=== PATIENT | female | born 1950 | race Two or more races ===

== ENCOUNTER 2017-05-18 03:47 | Inpatient (IN) | payer MEDICARE, OTHER ==
[~2017-05-18] VITALS: Ht 165.1 cm; Wt 63.3 kg
[2017-05-18] VITALS (11 sets, daily range): BP systolic 106–164; BP diastolic 61–96; PULSE 74–91; RESP 18–20; TEMP 98.4; Ht 165.1 cm; Wt 63.3 kg
[~2017-05-18 03:47] MED LIST: ASPI-664 PO; LEVO75TA5 PO; MELO-210 PO; OMEP20CA16 PO; SIMV40TA7 PO
[2017-05-18] MEDS ORDERED: NACL 0.9% 3 ML SYG IV SCH (04:30)
[2017-05-18] MEDS ORDERED: DOCUSATE SODIUM 100 MG CAP PO PRN (04:30)
[2017-05-18] MEDS ORDERED: BISACODYL (EC) 5 MG TAB PO PRN (04:30)
[2017-05-18] MEDS ORDERED: ONDANSETRON 4 MG INJ IV PRN (04:30)
[2017-05-18] MEDS ORDERED: CHOL100062 PO (05:31)
--- NOTE | 2017-05-18 05:40 | RADRPT ---
PROCEDURE: Chest. CLINICAL INDICATION: Syncope. TECHNIQUE: Single frontal view of the chest was obtained. COMPARISON: 09/13/2015. FINDINGS: The cardiac silhouette is enlarged. The aortic arch is calcified. There is mild pulmonary venous co ngestion. There is no focal consolidation or pleural effusion. There is no pneumothorax. IMPRESSION: Mild cardiomegaly and pulmonary venous congestion. Aortic atherosclerosis. .Evens Tovar MD, Date Time Electronically viewed and signed by .Evens Tovar MD, MD on 05/18/2017 05:39 .T/
[2017-05-18] MEDS: LEVOTHYROXINE 75 MCG TAB PO SCH (07:16)
[2017-05-18] MEDS: FAMOTIDINE 20 MG TAB PO SCH ×2 (09:00→20:25)
[2017-05-18] MEDS: ATORVASTATIN 20 MG TAB PO SCH (09:00)
--- NOTE | 2017-05-18 12:10 | CONS ---
Date/Time of Note Date/Time of Note DATE: 05/18/17 TIME: 12:05 Assessment/Plan Assessment/Plan Chief Complaint/Hosp Course 67 yo female with progressive LE weakness, increasing falls with B12 deficiency and anemia. 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 Prior falls have been associated with LOC, she was evaluated at [facility] previously and obtained unremarkable brain imaging and EEG. She is now tx from [facility] for further evaluation. Per family at bedside she has not received diagnostic york for possible neuropathy. H/H: 9.2/26.4 B12: 181 HBA1C 4.9% LE weakness reported Past Surgical History Past Surgical Hx: other Social History Smoking Status: Never smoker Exam/Review of Systems Vital Signs Vitals Vital Signs Date Time Temp Pulse Resp B/P Pulse Ox O2 Delivery O2 Flow Rate FiO2 05/18/17 11:55 98.4 74 20 106/61 98 Room Air Exam Constitutional: alert, oriented, well developed Neurological: INTERNSHIP COORDINATOR II-XII intact, DTR's symmetric (UE Reflexes 2+ KJ 2+ AJ are absent, absent vibratory sensation to both LE, PP is diminished below her knees as well , strength is overall 5/5 aside from mild weakness to the LLE left extensor hallucis 4/5), nl mental status, nl speech Results Result Diagram: 05/18/17 0610 05/18/17 0610 Results 24 hrs Laboratory Tests Test 05/18/17 06:10 White Blood Count 5.4 # Red Blood Count 2.20 #L Hemoglobin 9.2 #L Hematocrit 26.4 #L Mean Corpuscular Volume 120.0 H Mean Corpuscular Hemoglobin 41.8 #H Mean Corpuscular Hemoglobin Concent 34.8 Red Cell Distribution Width 15.4 H Platelet Count 150 Mean Platelet Volume 9.2 # Neutrophils % 49.7 Lymphocytes % 40.6 Monocytes % 6.5 Eosinophils % 2.4 Basophils % 0.2 Nucleated Red Blood Cells % 0.0 Neutrophils # 2.7 Lymphocytes # 2.2 Monocytes # 0.4 Eosinophils # 0.1 Basophils # 0.0 Nucleated Red Blood Cells # 0.0 Erythrocyte Sedimentation Rate 17 Sodium Level 144 Potassium Level 3.7 Chloride Level 108 Carbon Dioxide Level 28 Anion Gap 12 Blood Urea Nitrogen 15 Creatinine 0.70 Glucose Level 82 Hemoglobin A1c 4.9 Calcium Level 8.9 Magnesium Level 1.9 Total Bilirubin 0.5 Direct Bilirubin 0.00 Indirect Bilirubin 0.5 Aspartate Amino Transf (AST/SGOT) 16 Alanine Aminotransferase (ALT/SGPT) 22 Alkaline Phosphatase 63 Total Protein 6.3 Albumin 3.9 Globulin 2.40 Albumin/Globulin Ratio 1.62 Triglycerides Level 121 Cholesterol Level 172 LDL Cholesterol, Calculated 106 HDL Cholesterol 42 Cholesterol/HDL Ratio 4.0 Vitamin B12 Level 181 L Folate 17.2 Thyroid Stimulating Hormone (TSH) 2.790 Medications Medications Current Medications Ondansetron HCl (Zofran Inj) 4 mg Q6H PRN IV NAUSEA AND/OR VOMITING; Start at 04:30 Acetaminophen (Tylenol Tab) 650 mg Q6H PRN PO PAIN LEVEL 1-3 OR FEVER; Start 05/18/17 at 04:30 Docusate Sodium (Colace) 100 mg Q12H PRN PO CONSTIPATION; Start 05/18/17 at 04 :30 Bisacodyl (Dulcolax) 5 mg DAILY PRN PO CONSTIPATION; Start 05/18/17 at 04:30 Famotidine (Pepcid) 20 mg Q12 PO Last administered on 05/18/17 09:00; Admin Dose 20 MG; Start 05/18/17 at 09:00 Levothyroxine Sodium (Synthroid) 75 mcg DAILY@07 PO Last administered on 07:16; Admin Dose 75 MCG; Start 05/18/17 at 07:00 Atorvastatin Calcium (Lipitor) 20 mg DAILY PO Last administered on 05/18/17 09:00; Admin Dose 20 MG; Start 05/18/17 at 09:00 MELLISA CARTER MD May 18, 2017 12:10
--- NOTE | 2017-05-18 13:30 | HP ---
Date/Time of Note Date/Time of Note DATE: 05/18/17 TIME: 13:21 Assessment/Plan VTE Prophylaxis VTE Prophylaxis Intervention: LMWH Assessment/Plan Assessment/Plan This is a 67 yo female with history of hypothyroidism, thyroid surgeries, peripheral neuropathy, osteoarthritis, hypercholesterolemia, who was transferred from [facility] with progressive LE weakness and associated multiple episodes of falls. 1. Bilateral lower extremity weakness with progressive debility. -Admit for further workup. Obtain MRI of lumbar spine and neurology consult. -PT evaluation and treatment. 2. Megaloblastic anemia. -Obtain folate, B12. 3. Hypothyroidism with history of thyroid surgeries. -Resume Synthroid. Obtain full thyroid panel in a.m. 4. Hypercholesterolemia. -Resume statin. 5. GERD -Resume PPI. 6. History of osteoarthritis -Resume pain medications. 7. Vitamin D deficiency. -Potassium supplementation. DVT prophylaxis: Lovenox Plan: Patient will be admitted to inpatient medical surgical floor. She will have neurology evaluation. Patient will be evaluated by PT. Follow-up with imaging studies and a.m. labs. Follow-up with folate and vitamin B12 levels and treat accordingly. Rest of the management depend on hospital course. Approximately 60 minutes was spent on this history and physical. Patient was seen in collaboration with . HPI/ROS Admit Date/Time Admit Date/Time May 18, 2017 at 04:17 Hx of Present Illness This is a 67-year-old Nepali female with a past medical history of hypothyroidism, thyroid surgery, osteoarthritis, vitamin D deficiency, hypercholesterolemia, GERD, who was brought to the emergency room from [facility] secondary to progressive lower extremity weakness, bilateral. Patient has been having increased episodes of fall over the past few months. Patient denied chest pain, dizziness, headache, numbness/tingling, confusion, loss of consciousness, shortness of breath, fever, nausea, vomiting, abdominal pain or other constitutional symptoms. She denied any vision changes, speech difficulties, or any focal deficits. Reviewed outside hospital charts. Patient with hemoglobin 10.2, hematocrit 28.8 , MCV 121.7, and MCH 43.2. BMP within excitable range. UA without any possibility of UTI. Vital signs with blood pressure 162/81. Otherwise unremarkable. ROS A 12 point review of system was assessed and is negative other than what is mentioned in the HPI. PMH/Family/Social Past Medical History See HPI Past Surgical History See HPI Past Surgical Hx: other Social History Patient denied history of alcohol, smoking or illicit drug use. Smoking Status: Never smoker Exam/Review of Systems Vital Signs Vitals Vital Signs Date Time Temp Pulse Resp B/P Pulse Ox O2 Delivery O2 Flow Rate FiO2 05/18/17 11:55 98.4 74 20 106/61 98 Room Air Exam Exam General: Well developed,adequately built, Nepali female not in any acute distress . HEENT: Normocephalic, Atraumatic, No laceration or hematoma; Eyes: PEERL, Conjunctiva clear, Anicteric sclera Neck: Supple without any lymphadenopathy, nontender, no JVD, no carotid bruits, trachea midline, no thyromegaly Cardiac: S1, S2 auscultated, regular rhythm and rate, no mumurs or gallop Pulmonary: Normal respiratory effort. Chest clear to auscultation bilaterally, no adventitious breath sounds GI: Abdomen normal to inspection. Soft, non tender, non- distended, no masses, no rebound tenderness or guarding. Bowel sounds active on all four quadrants Genitourinary: Deferred Extremities: With pain and weakness to bilateral lower extremity. Motor strength 4 out of 5 on bilateral lower extremities. No cyanosis, clubbing, or edema. Pulses [2+] bilaterally. Full ROM on all four extremities. No focal weakness appreciated. Neurologic: Alert to person, place, time, and situation. Affect appropriate, intact sensation. Skin: Clean,dry, and intact. No ecchymosis, no rashes, or lesions Labs Result Diagram: 05/18/17 0610 05/18/17 0610 Medications Medications Current Medications Ondansetron HCl (Zofran Inj) 4 mg Q6H PRN IV NAUSEA AND/OR VOMITING; Start at 04:30 Acetaminophen (Tylenol Tab) 650 mg Q6H PRN PO PAIN LEVEL 1-3 OR FEVER; Start 05/18/17 at 04:30 Docusate Sodium (Colace) 100 mg Q12H PRN PO CONSTIPATION; Start 05/18/17 at 04 :30 Bisacodyl (Dulcolax) 5 mg DAILY PRN PO CONSTIPATION; Start 05/18/17 at 04:30 Famotidine (Pepcid) 20 mg Q12 PO Last administered on 05/18/17t 09:00; Admin Dose 20 MG; Start 05/18/17 at 09:00 Levothyroxine Sodium (Synthroid) 75 mcg DAILY@07 PO Last administered on 07:16; Admin Dose 75 MCG; Start 05/18/17 at 07:00 Atorvastatin Calcium (Lipitor) 20 mg DAILY PO Last administered on 05/18/17 09:00; Admin Dose 20 MG; Start 05/18/17 at 09:00 Cyanocobalamin (Vitamin B12 Inj) 1,000 mcg DAILY IM ; Start 05/18/17 at 12:30 SAMANTA MENDIETA NP May 18, 2017 13:30
[2017-05-18] MEDS: CYANOCOBALAMIN 1000 MCG INJ IM SCH (16:49)
[2017-05-19] VITALS (11 sets, daily range): BP systolic 106–165; BP diastolic 58–80; PULSE 60–92; RESP 16–20
[2017-05-19] MEDS: ACETAMINOPHEN 325 MG TAB PO PRN (00:12)
--- NOTE | 2017-05-19 07:38 | RADRPT ---
Echocardiogram Report Patient Name: CHAPARRITA METZGER Gender: Female Date: 1950 Study Date: 18-May-2017 Retirement Manager: Andre Akins [facility] Location: 3306 Ref. Physician: WILLIS RUIZ Quality: Adequate Procedures: Transthoracic echocardiogram with complete 2D, M-Mode, and doppler examination. Indications: Syncope. 2D/M Mode Doppler Measurement Value Normal Ranges Measurement Value Normal Ranges LVIDd 2D 4.7 3.5 - 5.6 cm AV Peak Sushil 1.6 m/sec LVIDs 2D 3.1 2.1 - 4.1 cm AV Peak PG 10.0 mmHg FS 2D 33.3 % LVOT Peak Sushil 1.0 m/sec LVPWd 2D 1.1 0.6 - 1.1 cm LVOT Peak PG 4.0 mmHg IVSd 2D 1.1 0.6 - 1.1 cm MV E Peak Sushil 0.8 m/sec IVS/LVPW 2D 1.0 MV A Peak Sushil 1.1 m/sec AoR Diam 2D 3.6 2.0 - 3.7 cm MV E/A 0.8 LA/Ao 2D 1 0 - 1 MV Decel Time 268 msec EDV 2D 104.0 cm3 MV E/A 0.8 ESV 2D 31.0 cm3 TR Peak Sushil 2.2 m/sec LA Dimen 2D 3.9 2.3 - 4.0 cm TR Peak PG 20.0 mmHg RVSP 30.0 mmHg Findings Left Ventricle: Normal left ventricular systolic function. Normal left ventricular cavity size. Mild concentric left ventricular hypertrophy. Ejection fraction is visually estimated at 55 %. Tissue Doppler/Mitral Doppler indices are consistent with impaired relaxation (Stage I diastolic dysfunction). Right Ventricle: Normal right ventricular size. Normal right ventricular systolic function. Left Atrium: The left atrium is normal in size. Right Atrium: The right atrium is normal in size. Mitral Valve: Mild mitral leaflet calcification. Mild mitral annular calcification. Trace mitral regurgitation. Aortic Valve: No significant aortic stenosis. Aortic cusps appear mildly calcified. Trace aortic valve regurgitation. Tricuspid Valve: Normal appearance of the tricuspid valve. Estimated peak PA systolic pressure 30 mmHg. There is mild tricuspid regurgitation. Pulmonic Valve: Pulmonic valve not well visualized. There is trace pulmonic regurgitation. Pericardium: Normal pericardium with no significant pericardial effusion. Aorta: Normal aortic root. IVC: Normal size and normal respiratory collapse consistent with normal right atrial pressure. Conclusions 1.Normal left ventricular systolic function. Normal left ventricular cavity size. Mild concentric left ventricular hypertrophy. Ejection fraction is visually estimated at 55 %. Tissue Doppler/Mitral Doppler indices are consistent with impaired relaxation (Stage I diastolic dysfunction). 2.Mild mitral leaflet calcification. Mild mitral annular calcification. Trace mitral regurgitation. 3.No significant aortic stenosis. Aortic cusps appear mildly calcified. Trace aortic valve regurgitation. 4.Normal appearance of the tricuspid valve. Estimated peak PA systolic pressure 30 mmHg. There is mild tricuspid regurgitation. Electronically Signed By: Julio Buitrago 19-May-2017 07:38:19 -0700 Patient Name: CHAPARRITA METZGER Study Date: 18-May-2017 [id number]
--- NOTE | 2017-05-19 07:38 | RADRPT ---
Echocardiogram Report Patient Name: CHAPARRITA METZGER Gender: Female Date: 1950 Study Date: 18-May-2017 Masking Machine Feeder: Andre Akins [facility] Location: 3306 Ref. Physician: WILLIS RUIZ Quality: Adequate Procedures: Transthoracic echocardiogram with complete 2D, M-Mode, and doppler examination. Indications: Syncope. 2D/M Mode Doppler Measurement Value Normal Ranges Measurement Value Normal Ranges LVIDd 2D 4.7 3.5 - 5.6 cm AV Peak Sushil 1.6 m/sec LVIDs 2D 3.1 2.1 - 4.1 cm AV Peak PG 10.0 mmHg FS 2D 33.3 % LVOT Peak Sushil 1.0 m/sec LVPWd 2D 1.1 0.6 - 1.1 cm LVOT Peak PG 4.0 mmHg IVSd 2D 1.1 0.6 - 1.1 cm MV E Peak Sushil 0.8 m/sec IVS/LVPW 2D 1.0 MV A Peak Sushil 1.1 m/sec AoR Diam 2D 3.6 2.0 - 3.7 cm MV E/A 0.8 LA/Ao 2D 1 0 - 1 MV Decel Time 268 msec EDV 2D 104.0 cm3 MV E/A 0.8 ESV 2D 31.0 cm3 TR Peak Sushil 2.2 m/sec LA Dimen 2D 3.9 2.3 - 4.0 cm TR Peak PG 20.0 mmHg RVSP 30.0 mmHg Findings Left Ventricle: Normal left ventricular systolic function. Normal left ventricular cavity size. Mild concentric left ventricular hypertrophy. Ejection fraction is visually estimated at 55 %. Tissue Doppler/Mitral Doppler indices are consistent with impaired relaxation (Stage I diastolic dysfunction). Right Ventricle: Normal right ventricular size. Normal right ventricular systolic function. Left Atrium: The left atrium is normal in size. Right Atrium: The right atrium is normal in size. Mitral Valve: Mild mitral leaflet calcification. Mild mitral annular calcification. Trace mitral regurgitation. Aortic Valve: No significant aortic stenosis. Aortic cusps appear mildly calcified. Trace aortic valve regurgitation. Tricuspid Valve: Normal appearance of the tricuspid valve. Estimated peak PA systolic pressure 30 mmHg. There is mild tricuspid regurgitation. Pulmonic Valve: Pulmonic valve not well visualized. There is trace pulmonic regurgitation. Pericardium: Normal pericardium with no significant pericardial effusion. Aorta: Normal aortic root. IVC: Normal size and normal respiratory collapse consistent with normal right atrial pressure. Conclusions 1.Normal left ventricular systolic function. Normal left ventricular cavity size. Mild concentric left ventricular hypertrophy. Ejection fraction is visually estimated at 55 %. Tissue Doppler/Mitral Doppler indices are consistent with impaired relaxation (Stage I diastolic dysfunction). 2.Mild mitral leaflet calcification. Mild mitral annular calcification. Trace mitral regurgitation. 3.No significant aortic stenosis. Aortic cusps appear mildly calcified. Trace aortic valve regurgitation. 4.Normal appearance of the tricuspid valve. Estimated peak PA systolic pressure 30 mmHg. There is mild tricuspid regurgitation. Electronically Signed By: Julio Buitrago 19-May-2017 07:38:19 -0700 Patient Name: CHAPARRITA METZGER Study Date: 18-May-2017 [id number]
--- NOTE | 2017-05-19 07:38 | RADRPT ---
Echocardiogram Report Patient Name: CHAPARRITA METZGER Gender: Female Date: 1950 Study Date: 18-May-2017 Sales Agent Financial Report Service: Andre Akins [facility] Location: 3306 Ref. Physician: WILLIS RUIZ Quality: Adequate Procedures: Transthoracic echocardiogram with complete 2D, M-Mode, and doppler examination. Indications: Syncope. 2D/M Mode Doppler Measurement Value Normal Ranges Measurement Value Normal Ranges LVIDd 2D 4.7 3.5 - 5.6 cm AV Peak Sushil 1.6 m/sec LVIDs 2D 3.1 2.1 - 4.1 cm AV Peak PG 10.0 mmHg FS 2D 33.3 % LVOT Peak Sushil 1.0 m/sec LVPWd 2D 1.1 0.6 - 1.1 cm LVOT Peak PG 4.0 mmHg IVSd 2D 1.1 0.6 - 1.1 cm MV E Peak Sushil 0.8 m/sec IVS/LVPW 2D 1.0 MV A Peak Sushil 1.1 m/sec AoR Diam 2D 3.6 2.0 - 3.7 cm MV E/A 0.8 LA/Ao 2D 1 0 - 1 MV Decel Time 268 msec EDV 2D 104.0 cm3 MV E/A 0.8 ESV 2D 31.0 cm3 TR Peak Sushil 2.2 m/sec LA Dimen 2D 3.9 2.3 - 4.0 cm TR Peak PG 20.0 mmHg RVSP 30.0 mmHg Findings Left Ventricle: Normal left ventricular systolic function. Normal left ventricular cavity size. Mild concentric left ventricular hypertrophy. Ejection fraction is visually estimated at 55 %. Tissue Doppler/Mitral Doppler indices are consistent with impaired relaxation (Stage I diastolic dysfunction). Right Ventricle: Normal right ventricular size. Normal right ventricular systolic function. Left Atrium: The left atrium is normal in size. Right Atrium: The right atrium is normal in size. Mitral Valve: Mild mitral leaflet calcification. Mild mitral annular calcification. Trace mitral regurgitation. Aortic Valve: No significant aortic stenosis. Aortic cusps appear mildly calcified. Trace aortic valve regurgitation. Tricuspid Valve: Normal appearance of the tricuspid valve. Estimated peak PA systolic pressure 30 mmHg. There is mild tricuspid regurgitation. Pulmonic Valve: Pulmonic valve not well visualized. There is trace pulmonic regurgitation. Pericardium: Normal pericardium with no significant pericardial effusion. Aorta: Normal aortic root. IVC: Normal size and normal respiratory collapse consistent with normal right atrial pressure. Conclusions 1.Normal left ventricular systolic function. Normal left ventricular cavity size. Mild concentric left ventricular hypertrophy. Ejection fraction is visually estimated at 55 %. Tissue Doppler/Mitral Doppler indices are consistent with impaired relaxation (Stage I diastolic dysfunction). 2.Mild mitral leaflet calcification. Mild mitral annular calcification. Trace mitral regurgitation. 3.No significant aortic stenosis. Aortic cusps appear mildly calcified. Trace aortic valve regurgitation. 4.Normal appearance of the tricuspid valve. Estimated peak PA systolic pressure 30 mmHg. There is mild tricuspid regurgitation. Electronically Signed By: Julio Buitrago 19-May-2017 07:38:19 -0700 Patient Name: CHAPARRITA METZGER Study Date: 18-May-2017 [id number]
[2017-05-19] MEDS: LEVOTHYROXINE 75 MCG TAB PO SCH (08:42)
[2017-05-19] MEDS: ATORVASTATIN 20 MG TAB PO SCH (08:42)
[2017-05-19] MEDS: FAMOTIDINE 20 MG TAB PO SCH ×2 (08:43→20:19)
[2017-05-19] MEDS: CYANOCOBALAMIN 1000 MCG INJ IM SCH (08:43)
--- NOTE | 2017-05-19 12:00 | PN ---
Date/Time of Note Date/Time of Note DATE: 05/19/17 TIME: 12:00 Assessment/Plan VTE Prophylaxis VTE Prophylaxis Intervention: LMWH Lines/Catheters IV Catheter Type (from [facility]): Saline Lock Assessment/Plan Chief Complaint/Hosp Course This is a 67 yo female with history of hypothyroidism, thyroid surgeries, peripheral neuropathy, osteoarthritis, hypercholesterolemia, who was transferred from OSH with progressive LE weakness and associated multiple episodes of falls. 1. Bilateral lower extremity weakness with progressive debility. -Neurology evaluation appreciated and recommended outpatient EMG/NCV studies . Follow-up MRI of lumbar spine -PT evaluation and treatment. 2. Megaloblastic anemia with vitamin B12 deficiency. Patient also with iron deficiency. -On B12 supplementation. We will also start oral iron replacement. 3. Hypothyroidism with history of thyroid surgeries. -On Synthroid. 4. Hypercholesterolemia. -On statin. 5. GERD -On PPI. 6. History of osteoarthritis -Continue pain medications. 7. Vitamin D deficiency. -Continue supplementation. DVT prophylaxis: Lovenox Plan: Continue with PT evaluation and treatment. Follow-up MRI. Also obtain a urine culture based on UA findings. Patient is asymptomatic and at this time, will defer antibiotic treatment only if cultures are positive. Patient was seen in collaboration with . Problems: Subjective 24 Hr Interval Summary Free Text/Dictation Patient with no acute distress. She denied any new weakness. Exam/Review of Systems Vital Signs Vitals Vital Signs Date Time Temp Pulse Resp B/P Pulse Ox O2 Delivery O2 Flow Rate FiO2 05/19/17 08:07 73 05/19/17 07:58 98.0 16 165/80 98 05/18/17 18:46 Room Air Intake and Output 05/18/17 05/18/17 05/19/17 15:00 23:00 07:00 Intake Total 400 ml Balance 400 ml Exam General: Well developed,adequately built, Kiswahili female not in any acute distress . HEENT: Normocephalic, Atraumatic, No laceration or hematoma; Eyes: PEERL, Conjunctiva clear, Anicteric sclera Neck: Supple without any lymphadenopathy, nontender, no JVD, no carotid bruits, trachea midline, no thyromegaly Cardiac: S1, S2 auscultated, regular rhythm and rate, no mumurs or gallop Pulmonary: Normal respiratory effort. Chest clear to auscultation bilaterally, no adventitious breath sounds GI: Abdomen normal to inspection. Soft, non tender, non- distended, no masses, no rebound tenderness or guarding. Bowel sounds active on all four quadrants Genitourinary: Deferred Extremities: With pain and weakness to bilateral lower extremity. Motor strength 4 out of 5 on bilateral lower extremities. No cyanosis, clubbing, or edema. Pulses [2+] bilaterally. Full ROM on all four extremities. No focal weakness appreciated. Neurologic: Alert to person, place, time, and situation. Affect appropriate, intact sensation. Skin: Clean,dry, and intact. No ecchymosis, no rashes, or lesions Results Result Diagram: 05/19/17 0650 05/19/17 0650 Results 24 hrs Laboratory Tests Test 05/19/17 06:05 05/19/17 06:50 Urine Color YELLOW Urine Clarity CLEAR Urine pH 5.0 Urine Specific [place] 1.012 Urine Ketones NEGATIVE Urine Nitrite NEGATIVE Urine Bilirubin NEGATIVE Urine Urobilinogen NEGATIVE Urine Leukocyte Esterase 2+ H Urine Microscopic RBC 1 Urine Microscopic WBC 23 H Urine Hemoglobin NEGATIVE Urine Glucose NEGATIVE Urine Total Protein NEGATIVE Urine Opiates Screen Negative Urine Barbiturates Negative Urine Amphetamines Screen Negative Urine Benzodiazepines Screen Negative Urine Cocaine Screen Negative Urine Cannabinoids Negative White Blood Count 5.7 Red Blood Count 2.31 L Hemoglobin 9.2 L Hematocrit 27.8 L Mean Corpuscular Volume 120.3 H Mean Corpuscular Hemoglobin 39.8 H Mean Corpuscular Hemoglobin Concent 33.1 Red Cell Distribution Width 15.4 H Platelet Count 146 Mean Platelet Volume 9.6 Neutrophils % 51.2 Lymphocytes % 35.5 Monocytes % 9.8 Eosinophils % 3.0 Basophils % 0.2 Nucleated Red Blood Cells % 0.0 Neutrophils # 2.9 Lymphocytes # 2.0 Monocytes # 0.6 Eosinophils # 0.2 Basophils # 0.0 Nucleated Red Blood Cells # 0.0 Sodium Level 143 Potassium Level 4.0 Chloride Level 108 Carbon Dioxide Level 29 Anion Gap 10 Blood Urea Nitrogen 23 H Creatinine 0.87 Glucose Level 87 Hemoglobin A1c 4.9 Calcium Level 8.9 Magnesium Level 1.9 Iron Level 31 L Total Iron Binding Capacity 321 Percent Iron Saturation 10 L Thyroid Stimulating Hormone (TSH) 3.420 Free Thyroxine 1.32 Free Thyroxine Index 3.13 Thyroxine (T4) 8.8 Free Triiodothyronine (T3) pg/mL 3.18 Triiodothyronine (T3) Uptake 35.6 Medications Medications Current Medications Ondansetron HCl (Zofran Inj) 4 mg Q6H PRN IV NAUSEA AND/OR VOMITING; Start at 04:30 Acetaminophen (Tylenol Tab) 650 mg Q6H PRN PO PAIN LEVEL 1-3 OR FEVER Last administered on 05/19/17 00:12; Admin Dose 650 MG; Start 05/18/17 at 04:30 Docusate Sodium (Colace) 100 mg Q12H PRN PO CONSTIPATION; Start 05/18/17 at 04 :30 Bisacodyl (Dulcolax) 5 mg DAILY PRN PO CONSTIPATION; Start 05/18/17 at 04:30 Famotidine (Pepcid) 20 mg Q12 PO Last administered on 05/19/17 08:43; Admin Dose 20 MG; Start 05/18/17 at 09:00 Levothyroxine Sodium (Synthroid) 75 mcg DAILY@07 PO Last administered on 08:42; Admin Dose 75 MCG; Start 05/18/17 at 07:00 Atorvastatin Calcium (Lipitor) 20 mg DAILY PO Last administered on 05/19/17 08 :42; Admin Dose 20 MG; Start 05/18/17 at 09:00 Cyanocobalamin (Vitamin B12 Inj) 1,000 mcg DAILY IM Last administered on 08:43; Admin Dose 1,000 MCG; Start 05/18/17 at 12:30 SAMANTA MENDIETA NP May 19, 2017 12:00
--- NOTE | 2017-05-19 13:13 | CONS ---
Date/Time of Note Date/Time of Note DATE: 05/19/17 TIME: 13:07 Consult Date/Type/Reason Admit Date/Time May 18, 2017 at 04:17 Initial Consult Date 05/18/17 Type of Consultation: Neurology Reason for Consultation LE weakness Ordering Provider: WILLIS RUIZ Subjective remains stable overnight pending MRI L Spine started on IM B12 supplementation Objective Vital Signs Date Time Temp Pulse Resp B/P Pulse Ox O2 Delivery O2 Flow Rate FiO2 05/19/17 12:05 90 05/19/17 07:58 98.0 16 165/80 98 05/18/17 18:46 Room Air Intake and Output 05/18/17 05/18/17 05/19/17 15:00 23:00 07:00 Intake Total 400 ml Balance 400 ml Exam Constitutional: alert, oriented, well developed 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, DTR's symmetric (UE Reflexes 2+ KJ 2+ AJ are absent, absent vibratory sensation to both LE, PP is diminished below her knees as well , strength is overall 5/5 aside from mild weakness to the LLE left extensor hallucis 4/5), nl mental status, nl speech Results/Medications Result Diagram: 05/19/17 0650 05/19/17 0650 Results 24 hrs Laboratory Tests Test 05/19/17 06:05 05/19/17 06:50 Urine Color YELLOW Urine Clarity CLEAR Urine pH 5.0 Urine Specific [place] 1.012 Urine Ketones NEGATIVE Urine Nitrite NEGATIVE Urine Bilirubin NEGATIVE Urine Urobilinogen NEGATIVE Urine Leukocyte Esterase 2+ H Urine Microscopic RBC 1 Urine Microscopic WBC 23 H Urine Hemoglobin NEGATIVE Urine Glucose NEGATIVE Urine Total Protein NEGATIVE Urine Opiates Screen Negative Urine Barbiturates Negative Urine Amphetamines Screen Negative Urine Benzodiazepines Screen Negative Urine Cocaine Screen Negative Urine Cannabinoids Negative White Blood Count 5.7 Red Blood Count 2.31 L Hemoglobin 9.2 L Hematocrit 27.8 L Mean Corpuscular Volume 120.3 H Mean Corpuscular Hemoglobin 39.8 H Mean Corpuscular Hemoglobin Concent 33.1 Red Cell Distribution Width 15.4 H Platelet Count 146 Mean Platelet Volume 9.6 Neutrophils % 51.2 Lymphocytes % 35.5 Monocytes % 9.8 Eosinophils % 3.0 Basophils % 0.2 Nucleated Red Blood Cells % 0.0 Neutrophils # 2.9 Lymphocytes # 2.0 Monocytes # 0.6 Eosinophils # 0.2 Basophils # 0.0 Nucleated Red Blood Cells # 0.0 Sodium Level 143 Potassium Level 4.0 Chloride Level 108 Carbon Dioxide Level 29 Anion Gap 10 Blood Urea Nitrogen 23 H Creatinine 0.87 Glucose Level 87 Hemoglobin A1c 4.9 Calcium Level 8.9 Magnesium Level 1.9 Iron Level 31 L Total Iron Binding Capacity 321 Percent Iron Saturation 10 L Thyroid Stimulating Hormone (TSH) 3.420 Free Thyroxine 1.32 Free Thyroxine Index 3.13 Thyroxine (T4) 8.8 Free Triiodothyronine (T3) pg/mL 3.18 Triiodothyronine (T3) Uptake 35.6 Medications Current Medications Ondansetron HCl (Zofran Inj) 4 mg Q6H PRN IV NAUSEA AND/OR VOMITING; Start at 04:30 Acetaminophen (Tylenol Tab) 650 mg Q6H PRN PO PAIN LEVEL 1-3 OR FEVER Last administered on 05/19/17 00:12; Admin Dose 650 MG; Start 05/18/17 at 04:30 Docusate Sodium (Colace) 100 mg Q12H PRN PO CONSTIPATION; Start 05/18/17 at 04 :30 Bisacodyl (Dulcolax) 5 mg DAILY PRN PO CONSTIPATION; Start 05/18/17 at 04:30 Famotidine (Pepcid) 20 mg Q12 PO Last administered on 05/19/17 08:43; Admin Dose 20 MG; Start 05/18/17 at 09:00 Levothyroxine Sodium (Synthroid) 75 mcg DAILY@07 PO Last administered on 08:42; Admin Dose 75 MCG; Start 05/18/17 at 07:00 Atorvastatin Calcium (Lipitor) 20 mg DAILY PO Last administered on 05/19/17 08 :42; Admin Dose 20 MG; Start 05/18/17 at 09:00 Cyanocobalamin (Vitamin B12 Inj) 1,000 mcg DAILY IM Last administered on 08:43; Admin Dose 1,000 MCG; Start 05/18/17 at 12:30 Ferrous Sulfate (Ferrous Sulfate (Ec)) 325 mg BID PO ; Start 05/19/17 at 21:00 Docusate Sodium (Colace) 100 mg BID PO ; Start 05/19/17 at 21:00 Assessment/Plan Chief Complaint/Hosp Course 67 yo female with progressive LE weakness, increasing falls with B12 deficiency and anemia. 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
--- NOTE | 2017-05-19 17:42 | RADRPT ---
PROCEDURE: MR Lumbar Spine without contrast. CLINICAL INDICATION: Lower extremity weakness. Neuropathy. TECHNIQUE: Multiplanar multisequence MRI of the lumbar spine was performed. COMPARISON: No similar studies are submitted for comparison. FINDINGS: There is a normal lumbar lordosis. The vertebral body heights are maintained. There is normal alignment. There is no destructive osseous lesion. There is no abnormal bone marrow edema. There is disc desiccation from T11-T12 to L5-S1. The conus medullaris is at the T12-L1 level. The cauda equina is unremarkable. T12-L1 : There is mild to moderate disc space narrowing. There is trace retrolisthesis with a [address]-based disc osteophyte complex and mild bilateral facet arthropathy without spinal canal stenosi s. There is mild to moderate right without left foraminal stenosis. L1-L2 : There is a 1 mm broad-based disc bulge and mild bilateral facet arthropathy ligamentum flavu m infolding without spinal canal stenosis. There is mild to moderate right with mild left foraminal stenosis. L2-L3 : There is a 1 mm broad-based disc bulge and moderate bilateral facet arthropathy and ligament um flavum infolding without spinal canal stenosis. There is mild to moderate left without right fora cecilio stenosis per L3-L4 : There is 1 mm circumferential disc bulge with moderate bilateral facet arthropathy ligamentu m flavum infolding without spinal canal stenosis. There is moderate left with mild to moderate right foraminal stenosis contacting the exiting left L3 nerve root. L4-L5 : There is a 2 mm circumferential disc bulge with a shallow central disc herniation with assoc iated annular fissure mildly effacing the bilateral lateral recesses with moderate bilateral facet a rthropathy and ligamentum flavum infolding causing moderate spinal canal stenosis. There is moderate left without right foraminal stenosis. L5-S1 : There is a 2 mm circumferential disc bulge with moderate bilateral facet arthropathy without spinal canal stenosis. There is mild to moderate left with mild right foraminal stenosis. The paraspinal musculature are within normal limits. IMPRESSION: 1. L3-L4 minimal circumferential disc bulge with moderate left foraminal stenosis contacting the ex iting left L3 nerve root. 2. L4-L5 circumferential disc bulge with a shallow central disc herniation effacing the bilateral la teral recesses with moderate spinal canal stenosis. There is moderate left foraminal stenosis. 3. No acute compression fracture or abnormal bone marrow edema. Further findings as detailed above. RPTAT: PP .Bassam Orlando MD, Date Time Electronically viewed and signed by .Bassam Orlando MD, on 05/19/2017 17:41 .F/
[2017-05-19] MEDS: FERROUS SULFATE (EC) 325 MG TAB PO SCH (20:19)
[2017-05-19] MEDS: DOCUSATE SODIUM 100 MG CAP PO SCH (20:19)
[2017-05-20] VITALS (13 sets, daily range): BP systolic 91–185; BP diastolic 55–90; PULSE 59–94; RESP 18–21
[2017-05-20] MEDS: LEVOTHYROXINE 75 MCG TAB PO SCH (06:07)
[2017-05-20] MEDS: ACETAMINOPHEN 325 MG TAB PO PRN ×2 (08:52→20:28)
[2017-05-20] MEDS: FAMOTIDINE 20 MG TAB PO SCH ×2 (08:52→20:27)
[2017-05-20] MEDS: ATORVASTATIN 20 MG TAB PO SCH (08:52)
[2017-05-20] MEDS: FERROUS SULFATE (EC) 325 MG TAB PO SCH ×2 (08:52→20:27)
[2017-05-20] MEDS: DOCUSATE SODIUM 100 MG CAP PO SCH ×2 (08:52→20:27)
[2017-05-20] MEDS: CYANOCOBALAMIN 1000 MCG INJ IM SCH (08:53)
--- NOTE | 2017-05-20 10:45 | CONS ---
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, DTR's symmetric (UE Reflexes 2+ KJ 2+ AJ are absent, absent vibratory sensation to both LE, PP is diminished below her knees as well , strength is overall 5/5 aside from mild weakness to the LLE left extensor hallucis 4/5), nl mental status, nl speech Results/Medications Result Diagram: 05/19/17 0650 05/19/17 0650 Medications Current Medications Ondansetron HCl (Zofran Inj) 4 mg Q6H PRN IV NAUSEA AND/OR VOMITING; Start at 04:30 Acetaminophen (Tylenol Tab) 650 mg Q6H PRN PO PAIN LEVEL 1-3 OR FEVER Last administered on 05/20/17 08:52; Admin Dose 650 MG; Start 05/18/17 at 04:30 Docusate Sodium (Colace) 100 mg Q12H PRN PO CONSTIPATION; Start 05/18/17 at 04 :30 Bisacodyl (Dulcolax) 5 mg DAILY PRN PO CONSTIPATION; Start 05/18/17 at 04:30 Famotidine (Pepcid) 20 mg Q12 PO Last administered on 05/20/17 08:52; Admin Dose 20 MG; Start 05/18/17 at 09:00 Levothyroxine Sodium (Synthroid) 75 mcg DAILY@07 PO Last administered on 06:07; Admin Dose 75 MCG; Start 05/18/17 at 07:00 Atorvastatin Calcium (Lipitor) 20 mg DAILY PO Last administered on 05/20/17 08 :52; Admin Dose 20 MG; Start 05/18/17 at 09:00 Cyanocobalamin (Vitamin B12 Inj) 1,000 mcg DAILY IM Last administered on 08:53; Admin Dose 1,000 MCG; Start 05/18/17 at 12:30 Ferrous Sulfate (Ferrous Sulfate (Ec)) 325 mg BID PO Last administered on 08:52; Admin Dose 325 MG; Start 05/19/17 at 21:00 Docusate Sodium (Colace) 100 mg BID PO Last administered on 05/20/17 08:52; Admin Dose 100 MG; Start 05/19/17 at 21:00 Assessment/Plan Chief Complaint/Hosp Course 67 yo female with progressive LE weakness, increasing falls with B12 deficiency and anemia. -anemia [place] -B12 supplementation 1000 mcg IM began advised family to fu with PCP to continue injections -MRI L Spine 1. L3-L4 minimal circumferential disc bulge with moderate left foraminal stenosis contacting the exiting left L3 nerve root. 2. L4-L5 circumferential disc bulge with a shallow central disc herniation effacing the bilateral lateral recesses with moderate spinal canal stenosis. There is moderate left foraminal stenosis. 3. No acute compression fracture or abnormal bone marrow edema. -would benefit from outpatient EMG/NCV studies advised family to also fu with neurology as outpatient to schedule -PT evaluation for gait balance training -dc planning w outpatient fu Problems: MELLISA CARTER MD May 20, 2017 10:45
--- NOTE | 2017-05-20 11:57 | PN ---
Date/Time of Note Date/Time of Note DATE: 05/20/17 TIME: 11:49 Assessment/Plan VTE Prophylaxis VTE Prophylaxis Intervention: LMWH Lines/Catheters IV Catheter Type (from Nrs): Saline Lock Assessment/Plan Chief Complaint/Hosp Course This is a 67 yo female with history of hypothyroidism, thyroid surgeries, peripheral neuropathy, osteoarthritis, hypercholesterolemia, who was transferred from [facility] with progressive LE weakness and associated multiple episodes of falls. 1. Polyneuropathy with underlying B12 deficiency. -Add Gabapentin. Continue B12 injections-Repeat levels in AM -PT/OT eval for strengthening/stretching -Outpatient neuro eval/EMG/NCV studies 2. Bilateral lower extremity weakness with progressive debility. Lumbar MRI: *L3-L4 minimal circumferential disc bulge with moderate left foraminal stenosis contacting the exiting left L3 nerve root. * L4-L5 circumferential disc bulge with a shallow central disc herniation effacing the bilateral lateral recesses with moderate spinal canal stenosis. There is moderate left foraminal stenosis. * No acute compression fracture or abnormal bone marrow edema. -Neurology evaluation appreciated and recommended outpatient EMG/NCV studies . -PT/OT tx 3. Megaloblastic anemia with vitamin B12 deficiency. Patient also with iron deficiency. -On B12 supplementation and oral iron replacement. 4. Hypothyroidism with history of thyroid surgeries. -On Synthroid. 5. Hypercholesterolemia. -On statin. 6. GERD -On PPI. 7. History of osteoarthritis -Continue pain medications. 8. Vitamin D deficiency. -Continue supplementation. DVT prophylaxis: Lovenox Plan: Continue with PT evaluation and treatment. She would benefit from further rehab at an inpatient rehab unit. Continue B12 injections. CM to fax outpt EMG/NCV/neurology outpt follow-up study authorization to insurance. Patient to continue B12 supplementation with PCP on DC Patient was seen in collaboration with . Problems: Subjective 24 Hr Interval Summary Free Text/Dictation No acute distress. Has been got up with PT but requires 2 person assist. Improved dizziness and numbness of finger tips. Exam/Review of Systems Vital Signs Vitals Vital Signs Date Time Temp Pulse Resp B/P Pulse Ox O2 Delivery O2 Flow Rate FiO2 05/20/17 08:20 98.4 79 18 141/75 99 Room Air Intake and Output 05/19/17 05/19/17 05/20/17 14:59 22:59 06:59 Intake Total 1250 ml 500 ml Balance 1250 ml 500 ml Exam General: Well developed,adequately built, [place] female not in any acute distress . HEENT: Normocephalic, Atraumatic, No laceration or hematoma; Eyes: PEERL, Conjunctiva clear, Anicteric sclera Neck: Supple without any lymphadenopathy, nontender, no JVD, no carotid bruits, trachea midline, no thyromegaly Cardiac: S1, S2 auscultated, regular rhythm and rate, no mumurs or gallop Pulmonary: Normal respiratory effort. Chest clear to auscultation bilaterally, no adventitious breath sounds GI: Abdomen normal to inspection. Soft, non tender, non- distended, no masses, no rebound tenderness or guarding. Bowel sounds active on all four quadrants Genitourinary: Deferred Extremities: With pain and weakness to bilateral lower extremity. Occasional numbness to finger tip+ Motor strength 4 out of 5 on bilateral lower extremities. No cyanosis, clubbing, or edema. Pulses [2+] bilaterally. Full ROM on all four extremities. No focal weakness appreciated. Neurologic: Alert to person, place, time, and situation. Affect appropriate, intact sensation. Skin: Clean,dry, and intact. No ecchymosis, no rashes, or lesions Results Result Diagram: 05/19/17 0650 05/19/17 0650 Medications Medications Current Medications Ondansetron HCl (Zofran Inj) 4 mg Q6H PRN IV NAUSEA AND/OR VOMITING; Start at 04:30 Acetaminophen (Tylenol Tab) 650 mg Q6H PRN PO PAIN LEVEL 1-3 OR FEVER Last administered on 05/20/17 08:52; Admin Dose 650 MG; Start 05/18/17 at 04:30 Docusate Sodium (Colace) 100 mg Q12H PRN PO CONSTIPATION; Start 05/18/17 at 04 :30 Bisacodyl (Dulcolax) 5 mg DAILY PRN PO CONSTIPATION; Start 05/18/17 at 04:30 Famotidine (Pepcid) 20 mg Q12 PO Last administered on 05/20/17 08:52; Admin Dose 20 MG; Start 05/18/17 at 09:00 Levothyroxine Sodium (Synthroid) 75 mcg DAILY@07 PO Last administered on 06:07; Admin Dose 75 MCG; Start 05/18/17 at 07:00 Atorvastatin Calcium (Lipitor) 20 mg DAILY PO Last administered on 05/20/17 08 :52; Admin Dose 20 MG; Start 05/18/17 at 09:00 Cyanocobalamin (Vitamin B12 Inj) 1,000 mcg DAILY IM Last administered on 08:53; Admin Dose 1,000 MCG; Start 05/18/17 at 12:30 Ferrous Sulfate (Ferrous Sulfate (Ec)) 325 mg BID PO Last administered on 08:52; Admin Dose 325 MG; Start 05/19/17 at 21:00 Docusate Sodium (Colace) 100 mg BID PO Last administered on 05/20/17 08:52; Admin Dose 100 MG; Start 05/19/17 at 21:00 SAMANTA MENDIETA NP May 20, 2017 11:57
[2017-05-20] MEDS: GABAPENTIN 100 MG CAP PO SCH ×2 (13:16→20:27)
[2017-05-21] VITALS (13 sets, daily range): BP systolic 111–126; BP diastolic 56–76; PULSE 76–154; RESP 18–21
[2017-05-21] MEDS: FAMOTIDINE 20 MG TAB PO SCH ×2 (08:18→20:49)
[2017-05-21] MEDS: GABAPENTIN 100 MG CAP PO SCH ×3 (08:18→20:51)
[2017-05-21] MEDS: FERROUS SULFATE (EC) 325 MG TAB PO SCH ×2 (08:18→20:49)
[2017-05-21] MEDS: ATORVASTATIN 20 MG TAB PO SCH (08:19)
[2017-05-21] MEDS: CYANOCOBALAMIN 1000 MCG INJ IM SCH (08:19)
[2017-05-21] MEDS: DOCUSATE SODIUM 100 MG CAP PO SCH ×2 (08:19→20:48)
[2017-05-21] MEDS: LEVOTHYROXINE 75 MCG TAB PO SCH (09:11)
--- NOTE | 2017-05-21 12:02 | PDOCDIS ---
Discharge Instructions CONDITION Patient Condition: Stable HOME CARE INSTRUCTIONS: Special Diet: REGULAR FOLLOW UP/APPOINTMENTS Follow-up Plan 1.Follow up with primary care physician in 1 week-needs outpatient neurologist evaluation for outpatient EMG/NCV studies. Patient also on vitamin B12 supplementation. If you don't have one please let someone know, we can give you resources that may help you pick one. You may also call your insurance company to assign one to you. Review your medication list with your nurse before leaving and if you need new prescriptions please let your nurse know. I may have made changes to your home medications or given you new prescriptions, please let your primary doctor know as well. Stay compliant with your medications and report any side effects to your PCP or pharmacist. Return to the ER if you have any concerns and cannot reach your doctors or call your insurance company, they usually have a nurse that can help you. 2. Call 911 or go to the nearest emergency room if experiencing loss of consciousness, dizziness, chest pain, shortness of breath, vomiting/abdominal pain, speech difficulties, motor weakness or any unusual symptoms. SAMANTA MENDIETA NP May 21, 2017 12:02
--- NOTE | 2017-05-21 12:02 | PN ---
Date/Time of Note Date/Time of Note DATE: 05/21/17 TIME: 11:58 Assessment/Plan VTE Prophylaxis VTE Prophylaxis Intervention: ambulation Lines/Catheters IV Catheter Type (from Nrs): Saline Lock Assessment/Plan Chief Complaint/Hosp Course This is a 67 yo female with history of hypothyroidism, thyroid surgeries, peripheral neuropathy, osteoarthritis, hypercholesterolemia, who was transferred from [facility] with progressive LE weakness and associated multiple episodes of falls. 1. Polyneuropathy with underlying B12 deficiency. -On gabapentin and B12 injections-Repeat levels with B12>1000-spoke with neurologist and After discussion , dose was changed to oral B12 100 mcg daily. -PT/OT eval for strengthening/stretching -Outpatient neuro eval/EMG/NCV studies 2. Bilateral lower extremity weakness with progressive debility. Lumbar MRI: *L3-L4 minimal circumferential disc bulge with moderate left foraminal stenosis contacting the exiting left L3 nerve root. * L4-L5 circumferential disc bulge with a shallow central disc herniation effacing the bilateral lateral recesses with moderate spinal canal stenosis. There is moderate left foraminal stenosis. * No acute compression fracture or abnormal bone marrow edema. -Neurology evaluation appreciated and recommended outpatient EMG/NCV studies . -PT/OT tx 3. Megaloblastic anemia with vitamin B12 deficiency. Patient also with iron deficiency. -On B12 supplementation-recommend dosage de-escalation and will defer to neurology .After discussion with neurologist, dose was changed to oral B12 100 mcg daily. Continue oral iron replacement. 4. Hypothyroidism with history of thyroid surgeries. -On Synthroid. 5. Hypercholesterolemia. -On statin. 6. GERD -On PPI. 7. History of osteoarthritis -Continue pain medications. 8. Vitamin D deficiency. -Continue supplementation. DVT prophylaxis: Lovenox Plan: Continue with PT evaluation and treatment. DC planning to [facility] facility for short-term PT. CM to fax outpt EMG/NCV/neurology outpt follow-up study authorization to insurance. Defer B12 dosing to neurologist. Currently patient with a B12 level greater than 1000. Patient was seen in collaboration with . Problems: Subjective 24 Hr Interval Summary Free Text/Dictation Overall with improvement in symptoms. She has been up with physical therapy with assist. Exam/Review of Systems Vital Signs Vitals Vital Signs Date Time Temp Pulse Resp B/P Pulse Ox O2 Delivery O2 Flow Rate FiO2 05/21/17 11:51 98.2 80 21 111/65 96 05/20/17 08:20 Room Air Intake and Output 05/20/17 05/20/17 05/21/17 15:00 23:00 07:00 Intake Total 880 ml 200 ml Balance 880 ml 200 ml Exam General: Well developed,adequately built, [place] female not in any acute distress . HEENT: Normocephalic, Atraumatic, No laceration or hematoma; Eyes: PEERL, Conjunctiva clear, Anicteric sclera Neck: Supple without any lymphadenopathy, nontender, no JVD, no carotid bruits, trachea midline, no thyromegaly Cardiac: S1, S2 auscultated, regular rhythm and rate, no mumurs or gallop Pulmonary: Normal respiratory effort. Chest clear to auscultation bilaterally, no adventitious breath sounds GI: Abdomen normal to inspection. Soft, non tender, non- distended, no masses, no rebound tenderness or guarding. Bowel sounds active on all four quadrants Genitourinary: Deferred Extremities: With pain and weakness to bilateral lower extremity. Occasional numbness to finger tip+ Motor strength 4 out of 5 on bilateral lower extremities. No cyanosis, clubbing, or edema. Pulses [2+] bilaterally. Full ROM on all four extremities. No focal weakness appreciated. Neurologic: Alert to person, place, time, and situation. Affect appropriate, intact sensation. Skin: Clean,dry, and intact. No ecchymosis, no rashes, or lesions Results Result Diagram: 05/21/17 0718 05/21/17 0718 Results 24 hrs Laboratory Tests Test 05/21/17 07:18 White Blood Count 8.1 # Red Blood Count 2.47 L Hemoglobin 9.7 L Hematocrit 29.4 L Mean Corpuscular Volume 119.0 H Mean Corpuscular Hemoglobin 39.3 H Mean Corpuscular Hemoglobin Concent 33.0 Red Cell Distribution Width 15.8 H Platelet Count 181 # Mean Platelet Volume 10.1 Neutrophils % 53.8 Lymphocytes % 31.7 Monocytes % 11.6 H Eosinophils % 2.2 Basophils % 0.1 Nucleated Red Blood Cells % 0.0 Neutrophils # 4.3 Lymphocytes # 2.6 Monocytes # 0.9 Eosinophils # 0.2 Basophils # 0.0 Nucleated Red Blood Cells # 0.0 Sodium Level 144 Potassium Level 4.4 Chloride Level 108 Carbon Dioxide Level 27 Anion Gap 13 Blood Urea Nitrogen 24 H Creatinine 0.83 Glucose Level 80 Calcium Level 8.4 Vitamin B12 Level > 1000 H Medications Medications Current Medications Ondansetron HCl (Zofran Inj) 4 mg Q6H PRN IV NAUSEA AND/OR VOMITING; Start at 04:30 Acetaminophen (Tylenol Tab) 650 mg Q6H PRN PO PAIN LEVEL 1-3 OR FEVER Last administered on 05/20/17 20:28; Admin Dose 650 MG; Start 05/18/17 at 04:30 Docusate Sodium (Colace) 100 mg Q12H PRN PO CONSTIPATION; Start 05/18/17 at 04 :30 Bisacodyl (Dulcolax) 5 mg DAILY PRN PO CONSTIPATION; Start 05/18/17 at 04:30 Famotidine (Pepcid) 20 mg Q12 PO Last administered on 05/21/17 08:18; Admin Dose 20 MG; Start 05/18/17 at 09:00 Levothyroxine Sodium (Synthroid) 75 mcg DAILY@07 PO Last administered on 09:11; Admin Dose 75 MCG; Start 05/18/17 at 07:00 Atorvastatin Calcium (Lipitor) 20 mg DAILY PO Last administered on 05/21/17 08 :19; Admin Dose 20 MG; Start 05/18/17 at 09:00 Cyanocobalamin (Vitamin B12 Inj) 1,000 mcg DAILY IM Last administered on 08:19; Admin Dose 1,000 MCG; Start 05/18/17 at 12:30 Ferrous Sulfate (Ferrous Sulfate (Ec)) 325 mg BID PO Last administered on 08:18; Admin Dose 325 MG; Start 05/19/17 at 21:00 Docusate Sodium (Colace) 100 mg BID PO Last administered on 05/21/17 08:19; Admin Dose 100 MG; Start 05/19/17 at 21:00 Gabapentin (Neurontin) 100 mg TID PO Last administered on 05/21/17 08:18; Admin Dose 100 MG; Start 05/20/17 at 13:00 SAMANTA MENDIETA NP May 21, 2017 12:02
[2017-05-21] MEDS ORDERED: GABA100C14 PO (12:05)
[2017-05-21] MEDS ORDERED: FER325 PO (12:05)
[2017-05-21] MEDS ORDERED: [UNRECOGNIZED DRUG - CODE] SL (12:05)
[2017-05-21] MEDS ORDERED: [UNRECOGNIZED DRUG - CODE] PO (12:07)
[2017-05-21] MEDS ORDERED: CYAN500T44 PO (12:10)
--- NOTE | 2017-05-21 12:12 | DS ---
Date/Time of Note Date/Time of Note DATE: 05/21/17 TIME: 12:12 Discharge Summary Admission/Discharge Info Admit Date/Time May 18, 2017 at 04:17 Discharge Date/Time Discharge Diagnosis 1. Polyneuropathy with underlying B12 deficiency. 2. Lumbar spinal stenosis 3. Bilateral lower extremity weakness with progressive debility secondary to #1 ,#2. 3. Megaloblastic anemia with vitamin B12 deficiency. 4. Hypothyroidism with history of thyroid surgeries. 5. Hypercholesterolemia. 6. GERD 7. History of osteoarthritis 8. Vitamin D deficiency. Patient Condition: Stable Consults . Procedures 05/19/2017. Lumbar spinal MRI. IMPRESSION: 1. L3-L4 minimal circumferential disc bulge with moderate left foraminal stenosis contacting the exiting left L3 nerve root. 2. L4-L5 circumferential disc bulge with a shallow central disc herniation effacing the bilateral lateral recesses with moderate spinal canal stenosis. There is moderate left foraminal stenosis. 3. No acute compression fracture or abnormal bone marrow edema. Hospital Course This is a 67 yo female with history of hypothyroidism, thyroid surgeries, peripheral neuropathy, osteoarthritis, hypercholesterolemia, who was transferred from [facility] with progressive LE weakness and associated multiple episodes of falls who was found with polyneuropathy and severe B12 deficiency. Patient did not have any focal deficits. She was also continued on home medication for underlying hypothyroidism, hypercholesteremia, GERD, vitamin D deficiency and osteoarthritis. Patient was seen by neurology and the recommendation was to start her on B12 injection with outpatient neurology evaluation and EMG/NCV studies. Lumbar MRI without any compression fracture. However there was evidence of L3-L4 minimal circumferential disc bulge with moderate left foraminal stenosis contacting the exiting left L3 nerve root, L4-L5 circumferential disc bulge with a shallow central disc herniation effacing the bilateral lateral recesses with moderate spinal canal stenosis. There is moderate left foraminal stenosis. Patient did not have any numbness or tingling sensation. Patient was also started on gabapentin and PRN pain meds. Patient was then evaluated by physical therapy. As per physical therapy recommendation, patient was recommended to continue inpatient physical therapy at his current nursing facility versus 24 hour home health PT 7 days a week. At this time, patient and family receptive of going to a senior living facility for short-term physical therapy prior to discharge home. Therefore case management was called for arranging discharge to senior living facility for physical therapy and rehabilitation. Patient is now feeling back to her baseline. Her weakness is improved. Vitamin B12 level was repeated and found about 1000. I discussed this with patient's neurologist and recommendation was made to change B12 injection to oral vitamin B12 100 mcg per day. Patient to follow-up with her primary care physician as outpatient. Upon discharge, she was recommended to follow-up with a neurologist for outpatient EMG/NCV studies. Patient and family verbalized discharge instructions. Disposition: [facility] facility versus 24 hour home health 7 days on. Approximately 60 minutes was spent in coordinating the discharge on this patient. Patient was seen in collaboration with . Home Meds Reported Medications Cholecalciferol* (Vitamin D3*) 1,000 Unit Tablet, 2000 UNIT PO DAILY, TAB 05/18/17 Levothyroxine Sodium* (Levothyroxine Sodium*) 75 Mcg Tablet, 75 MCG PO DAILY, # 30 09/13/15 Aspirin* (Aspirin* EC) 81 Mg Tablet.dr, 81 MG PO DAILY, #30 09/13/15 Meloxicam* (Mobic*) 15 Mg Tablet, 15 MG PO DAILY, #30 09/13/15 Omeprazole* (Omeprazole*) 20 Mg Capsule.dr, 20 MG PO DAILY, #30 09/13/15 Simvastatin (Simvastatin) 40 Mg Tablet, 40 MG PO DAILY, #30 09/13/15 Follow-up Plan 1.Follow up with primary care physician in 1 week-needs outpatient neurologist evaluation for outpatient EMG/NCV studies. Patient also on vitamin B12 supplementation. If you don't have one please let someone know, we can give you resources that may help you pick one. You may also call your insurance company to assign one to you. Review your medication list with your nurse before leaving and if you need new prescriptions please let your nurse know. I may have made changes to your home medications or given you new prescriptions, please let your primary doctor know as well. Stay compliant with your medications and report any side effects to your PCP or pharmacist. Return to the ER if you have any concerns and cannot reach your doctors or call your insurance company, they usually have a nurse that can help you. 2. Call 911 or go to the nearest emergency room if experiencing loss of consciousness, dizziness, chest pain, shortness of breath, vomiting/abdominal pain, speech difficulties, motor weakness or any unusual symptoms. Primary Care Provider Luciana Cunningham Pending Labs Laboratory Tests Test 05/21/17 07:18 White Blood Count 8.110^3/ul (4.8-10.8) Red Blood Count 2.4710^6/ul (4.20-5.40) Hemoglobin 9.7g/dl (12.0-16.0) Hematocrit 29.4% (37.0-47.0) Mean Corpuscular Volume 119.0fl (82.0-101.0) Mean Corpuscular Hemoglobin 39.3pg (29.0-33.0) Mean Corpuscular Hemoglobin Concent 33.0g/dl (32.0-37.0) Red Cell Distribution Width 15.8% (11.5-14.5) Platelet Count 86930^3/UL (140-415) Mean Platelet Volume 10.1fl (7.4-10.4) Neutrophils % 53.8% (39.0-77.0) Lymphocytes % 31.7% (15.0-51.0) Monocytes % 11.6% (0.0-11.0) Eosinophils % 2.2% (0.0-7.0) Basophils % 0.1% (0.0-2.0) Nucleated Red Blood Cells % 0.0/100WBC (0.0-0.0) Neutrophils # 4.310^3/ul (1.6-7.5) Lymphocytes # 2.610^3/ul (0.8-2.9) Monocytes # 0.910^3/ul (0.3-0.9) Eosinophils # 0.210^3/ul (0.0-0.5) Basophils # 0.010^3/ul (0.0-0.1) Nucleated Red Blood Cells # 0.010^3/ul (0.0-0.0) Sodium Level 144mmol/L (135-144) Potassium Level 4.4mmol/L (3.5-5.1) Chloride Level 108mmol/L (97-110) Carbon Dioxide Level 27mmol/L (21-31) Anion Gap 13 (8-16) Blood Urea Nitrogen 24mg/dl (7-20) Creatinine 0.83mg/dl (0.44-1.00) Glucose Level 80mg/dl (70-220) Calcium Level 8.4mg/dl (8.4-10.2) Vitamin B12 Level > 1000pg/ml (239-931) SAMANTA MENDIETA NP May 21, 2017 12:12 SAMANTA MENDIETA NP May 21, 2017 12:12
[2017-05-22] VITALS (10 sets, daily range): BP systolic 112–146; BP diastolic 53–86; PULSE 80–96; RESP 19–20
[2017-05-22] MEDS: LEVOTHYROXINE 75 MCG TAB PO SCH (06:07)
[2017-05-22] MEDS ORDERED: CYANOCOBALAMIN 100 MCG TAB PO SCH (09:00)
[2017-05-22] MEDS ORDERED: CYANOCOBALAMIN 500 MCG TAB PO SCH (09:00)
[2017-05-22] MEDS: ATORVASTATIN 20 MG TAB PO SCH (09:58)
[2017-05-22] MEDS: FERROUS SULFATE (EC) 325 MG TAB PO SCH (09:58)
[2017-05-22] MEDS: GABAPENTIN 100 MG CAP PO SCH ×2 (09:58→15:04)
[2017-05-22] MEDS: FAMOTIDINE 20 MG TAB PO SCH (09:58)
[2017-05-22] MEDS: DOCUSATE SODIUM 100 MG CAP PO SCH (09:58)
--- NOTE | 2017-05-22 13:12 | PN ---
Date/Time of Note Date/Time of Note DATE: 05/22/17 TIME: 13:09 Assessment/Plan VTE Prophylaxis VTE Prophylaxis Intervention: ambulation Lines/Catheters IV Catheter Type (from Nrsg): Saline Lock Assessment/Plan Assessment/Plan 1. Polyneuropathy with underlying B12 deficiency. - On gabapentin and PO B12 -Outpatient neuro eval/EMG/NCV studies 2. Bilateral lower extremity weakness with progressive debility. - Lumbar MRI showed L3-L4 minimal circumferential disc bulge with moderate left foraminal stenosis contacting the exiting left L3 nerve root. L4-L5 circumferential disc bulge with a shallow central disc herniation effacing the bilateral lateral recesses with moderate spinal canal stenosis. There is moderate left foraminal stenosis. No acute compression fracture or abnormal bone marrow edema. -Neurology evaluation appreciated and recommended outpatient EMG/NCV studies . -PT/OT tx 3. Megaloblastic anemia with vitamin B12 deficiency and iron deficiency. - continue on B12 supplementation - continue on iron supplements 4. Hypothyroidism with history of thyroid surgeries. - continue on Synthroid 5. Hypercholesterolemia. - continue on statin 6. GERD -On PPI. 7. History of osteoarthritis -Continue pain medications. 8. Vitamin D deficiency. -Continue supplementation. 9. Disposition - Medically cleared for discharge to SNF for short term PT Subjective 24 Hr Interval Summary Free Text/Dictation patient doing well and has no new complaints. No acute overnight events. Eating breakfast with at bedside. Exam/Review of Systems Vital Signs Vitals Vital Signs Date Time Temp Pulse Resp B/P Pulse Ox O2 Delivery O2 Flow Rate FiO2 05/22/17 12:06 87 05/22/17 11:38 98.1 20 114/58 98 05/20/17 08:20 Room Air Intake and Output 05/21/17 05/21/17 05/22/17 15:00 23:00 07:00 Intake Total 1100 ml 150 ml Balance 1100 ml 150 ml Exam General: No acute distress, awake and alert HEENT: NC/AT, PEERL, Conjunctiva clear, no JVD, no carotid bruits, trachea midline, no thyromegaly Cardiac: S1, S2 auscultated, regular rhythm and rate, no mumurs or gallop Pulmonary: Normal respiratory effort. Chest clear to auscultation bilaterally, no wheezes or crackles GI. Soft, non tender, non- distended, no masses, no rebound tenderness or guarding. Bowel sounds active on all four quadrants Extremities: With pain and weakness to bilateral lower extremity. Occasional numbness to finger tip+ Motor strength 4 out of 5 on bilateral lower extremities. No cyanosis, clubbing, or edema. Pulses [2+] bilaterally. Full ROM on all four extremities. No focal weakness appreciated. Skin: Clean,dry, and intact. No ecchymosis, no rashes, or lesions Results Result Diagram: 05/21/1771705/21/17717 Medications Medications Current Medications Ondansetron HCl (Zofran Inj) 4 mg Q6H PRN IV NAUSEA AND/OR VOMITING; Start at 04:30 Acetaminophen (Tylenol Tab) 650 mg Q6H PRN PO PAIN LEVEL 1-3 OR FEVER Last administered on 05/20/17 20:28; Admin Dose 650 MG; Start 05/18/17 at 04:30 Docusate Sodium (Colace) 100 mg Q12H PRN PO CONSTIPATION; Start 05/18/17 at 04 :30 Bisacodyl (Dulcolax) 5 mg DAILY PRN PO CONSTIPATION; Start 05/18/17 at 04:30 Famotidine (Pepcid) 20 mg Q12 PO Last administered on 05/22/17 09:58; Admin Dose 20 MG; Start 05/18/17 at 09:00 Levothyroxine Sodium (Synthroid) 75 mcg DAILY@07 PO Last administered on 06:07; Admin Dose 75 MCG; Start 05/18/17 at 07:00 Atorvastatin Calcium (Lipitor) 20 mg DAILY PO Last administered on 05/22/17 09 :58; Admin Dose 20 MG; Start 05/18/17 at 09:00 Ferrous Sulfate (Ferrous Sulfate (Ec)) 325 mg BID PO Last administered on 09:58; Admin Dose 325 MG; Start 05/19/17 at 21:00 Docusate Sodium (Colace) 100 mg BID PO Last administered on 05/22/17 09:58; Admin Dose 100 MG; Start 05/19/17 at 21:00 Gabapentin (Neurontin) 100 mg TID PO Last administered on 05/22/17 09:58; Admin Dose 100 MG; Start 05/20/17 at 13:00 Cyanocobalamin (Vitamin B12) 100 mcg DAILY PO Last administered on 05/22/17t 10 :00; Admin Dose 100 MCG; Start 05/22/17 at 09:00 PINA HINTON MD May 22, 2017 13:12
--- NOTE | 2017-05-22 13:21 | DS ---
Date/Time of Note Date/Time of Note DATE: 05/22/17 TIME: 13:19 Discharge Summary Admission/Discharge Info Admit Date/Time May 18, 2017 at 04:17 Discharge Date/Time 05/22/17 Discharge Diagnosis 1. Polyneuropathy with underlying B12 deficiency. 2. Lumbar spinal stenosis 3. Bilateral lower extremity weakness with progressive debility secondary to #1 ,#2. 3. Megaloblastic anemia with vitamin B12 deficiency. 4. Hypothyroidism with history of thyroid surgeries. 5. Hypercholesterolemia. 6. GERD 7. History of osteoarthritis 8. Vitamin D deficiency. Patient Condition: Good Consults neurology- . Procedures 05/19/2017. Lumbar spinal MRI. IMPRESSION: 1. L3-L4 minimal circumferential disc bulge with moderate left foraminal stenosis contacting the exiting left L3 nerve root. 2. L4-L5 circumferential disc bulge with a shallow central disc herniation effacing the bilateral lateral recesses with moderate spinal canal stenosis. There is moderate left foraminal stenosis. 3. No acute compression fracture or abnormal bone marrow edema. Hx of Present Illness This is a 67-year-old [place] female with a past medical history of hypothyroidism, thyroid surgery, osteoarthritis, vitamin D deficiency, hypercholesterolemia, GERD, who was brought to the emergency room from [facility] secondary to progressive lower extremity weakness, bilateral. Patient has been having increased episodes of fall over the past few months. Patient denied chest pain, dizziness, headache, numbness/tingling, confusion, loss of consciousness, shortness of breath, fever, nausea, vomiting, abdominal pain or other constitutional symptoms. She denied any vision changes, speech difficulties, or any focal deficits. Reviewed outside hospital charts. Patient with hemoglobin 10.2, hematocrit 28.8 , MCV 121.7, and MCH 43.2. BMP within excitable range. UA without any possibility of UTI. Vital signs with blood pressure 162/81. Otherwise unremarkable. Hospital Course This is a 67 yo female with history of hypothyroidism, thyroid surgeries, peripheral neuropathy, osteoarthritis, hypercholesterolemia, who was transferred from [facility] with progressive LE weakness and associated multiple episodes of falls who was found with polyneuropathy and severe B12 deficiency. Patient did not have any focal deficits. She was also continued on home medication for underlying hypothyroidism, hypercholesteremia, GERD, vitamin D deficiency and osteoarthritis. Patient was seen by neurology and the recommendation was to start her on B12 injection with outpatient neurology evaluation and EMG/NCV studies. Lumbar MRI without any compression fracture. However there was evidence of L3-L4 minimal circumferential disc bulge with moderate left foraminal stenosis contacting the exiting left L3 nerve root, L4-L5 circumferential disc bulge with a shallow central disc herniation effacing the bilateral lateral recesses with moderate spinal canal stenosis. There is moderate left foraminal stenosis. Patient did not have any numbness or tingling sensation. Patient was also started on gabapentin and PRN pain meds. Patient was then evaluated by physical therapy. As per physical therapy recommendation, patient was recommended to continue inpatient physical therapy at his current nursing facility versus 24 hour home health PT 7 days a week. At this time, patient and family receptive of going to a group home facility for short-term physical therapy prior to discharge home. Therefore case management was called for arranging discharge to group home facility for physical therapy and rehabilitation. Patient is now feeling back to her baseline. Her weakness is improved. Vitamin B12 level was repeated and found about 1000. I discussed this with patient's neurologist and recommendation was made to change B12 injection to oral vitamin B12 100 mcg per day. Patient to follow-up with her primary care physician as outpatient. Upon discharge, she was recommended to follow-up with a neurologist for outpatient EMG/NCV studies. Patient and family verbalized discharge instructions. Disposition: alf facility versus 24 hour home health 7 days on. Home Meds Reported Medications Cholecalciferol* (Vitamin D3*) 1,000 Unit Tablet, 2000 UNIT PO DAILY, TAB 05/18/17 Levothyroxine Sodium* (Levothyroxine Sodium*) 75 Mcg Tablet, 75 MCG PO DAILY, # 30 09/13/15 Aspirin* (Aspirin* EC) 81 Mg Tablet.dr, 81 MG PO DAILY, #30 09/13/15 Meloxicam* (Mobic*) 15 Mg Tablet, 15 MG PO DAILY, #30 09/13/15 Omeprazole* (Omeprazole*) 20 Mg Capsule.dr, 20 MG PO DAILY, #30 09/13/15 Simvastatin (Simvastatin) 40 Mg Tablet, 40 MG PO DAILY, #30 09/13/15 Follow-up Plan 1.Follow up with primary care physician in 1 week-needs outpatient neurologist evaluation for outpatient EMG/NCV studies. Patient also on vitamin B12 supplementation. If you don't have one please let someone know, we can give you resources that may help you pick one. You may also call your insurance company to assign one to you. Review your medication list with your nurse before leaving and if you need new prescriptions please let your nurse know. I may have made changes to your home medications or given you new prescriptions, please let your primary doctor know as well. Stay compliant with your medications and report any side effects to your PCP or pharmacist. Return to the ER if you have any concerns and cannot reach your doctors or call your insurance company, they usually have a nurse that can help you. 2. Call 911 or go to the nearest emergency room if experiencing loss of consciousness, dizziness, chest pain, shortness of breath, vomiting/abdominal pain, speech difficulties, motor weakness or any unusual symptoms. Primary Care Provider Luciana Cunningham Time spent on discharge: > 30 minutes PINA HINTON MD May 22, 2017 13:21
== END 2017-05-22 16:40 | DRG 812 ==
LOC: E/R 03:47 → MS3 04:17 → MS4 18:20
PROVIDERS: ADMIT Family Medicine; ATTEND Family Medicine
DX: D53.1 Other megaloblastic anemias, not elsewhere classified (principal); G63 Polyneuropathy in diseases classified elsewhere; E53.8 Deficiency of other specified B group vitamins; E03.9 Hypothyroidism, unspecified; E78.00 Pure hypercholesterolemia, unspecified; K21.9 Gastro-esophageal reflux disease without esophagitis; E55.9 Vitamin D deficiency, unspecified; E61.1 Iron deficiency; M51.26 Other intervertebral disc displacement, lumbar region; M19.90 Unspecified osteoarthritis, unspecified site
CPT/HCPCS: 71010; 72148; 80048; 80053; 80061; 80307; 81001; 82607; 82746; 83036; 83540; 83735; 83921; 84436; 84439; 84443; 84479; 84481; 85025; 85651; 86340; 87086; 93306; 97110; 97116; 97162; 97166; J3420